=== PATIENT | male | born 1940 | race Caucasian/White ===

== ENCOUNTER 2017-05-03 11:45 | Emergency (ER) | payer MEDICARE | END 2017-05-03 12:21 | disposition home or self-care (01) | LOC: SCSER 11:45 | DX: K59.00 Constipation, unspecified (principal); Z79.899 Other long term (current) drug therapy | CPT/HCPCS: 99283 ==

== ENCOUNTER 2018-09-13 12:49 | Outpatient (CLI) | payer MEDICARE ==
[2018-09-13 14:44] LABS: Hemoglobin 13.4 g/dL (14.0-18.0)
[2018-09-13 15:23] LABS: Anion Gap 12 mmol/L (10-20); BUN (Urea Nitrogen) 13 mg/dL (8.4-25.7); Calc. Creatinine Clearance 0 mL/min (70-130); Calcium 9.6 mg/dL (7.8-10.44); Carbon Dioxide 27 mmol/L (23-31); Chloride 104 mmol/L (98-107); Estimated GFR-MDRD Greater than 90; Glucose 77 mg/dL (83-110); Potassium 4.9 mmol/L (3.5-5.1); Sodium 138 mmol/L (136-145)
== END 2018-09-13 12:50 | disposition home or self-care (01) ==
LOC: LABBT 12:49
PROVIDERS: ATTEND Internal Medicine Cardiovascular Disease
DX: Z01.812 Encounter for preprocedural laboratory examination (principal); R06.09 Other forms of dyspnea
CPT/HCPCS: 80048; 85014; 85018

== ENCOUNTER 2018-10-13 19:28 | Emergency (ER) | payer MEDICARE ==
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
[2018-10-13] MEDS ORDERED: Acetaminophen 325 MG TAB ONE ×2 (21:15→21:18)
== END 2018-10-13 22:46 | disposition home or self-care (01) ==
LOC: SCSER 19:28
DX: S22.31XA Fracture of one rib, right side, initial encounter for closed fracture (principal); E78.5 Hyperlipidemia, unspecified; Z86.73 Personal history of transient ischemic attack (TIA), and cerebral infarction without residual deficits; Z79.899 Other long term (current) drug therapy; V89.2XXA Person injured in unspecified motor-vehicle accident, traffic, initial encounter

== ENCOUNTER 2019-10-10 12:38 | Outpatient (CLI) | payer MEDICARE ==
[2019-10-10] MEDS ORDERED: Magnevist 469MG/ML 20 ML VIAL ONE (14:23)
[2019-10-10 15:15] LABS: Estimated GFR-MDRD - POC Greater than 90
--- NOTE | 2019-10-10 16:08 | MRI ---
MRI OF THE BRAIN WITH AND WITHOUT CONTRAST: 10/10/19 INDICATIONS: Syncope and collapse. CORRELATION: Correlation made to CT of 10/07/13. That exam described an evolving infarct in the right cerebrum. FINDINGS: There is encephalomalacia in the right frontal and temporal lobes with surrounding gliosis consistent with old infarcts. 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 Ex vacuo dilata tion of the right lateral ventricle due to these infarcts. Moderately severe chronic ischemic white m atter changes in the periventricular white matter and centrum semiovale as well as scattered hyperint ensities in the subcortical white matter of both cerebral hemispheres. There is no evidence of restricted diffusion. There is no evidence of acute mass, hemorrhage, or infa rct. No abnormal enhancement identified. The intracranial internal carotid arteries show flow voids. Proximal anterior cerebral arteries show flow void. Middle cerebral artery flow voids are not well demonstrated. The basilar artery shows flow voids. The dural venous sinuses appear patent. Mucosal thickening in the left maxillary antrum produces diffuse signal throughout this left maxillar y sinus. Mucosal thickening in the ethmoid air cells, sphenoid air cells and frontal air cells also n oted. IMPRESSION: 1. Encephalomalacia in the right cerebral hemisphere consistent with old infarct. There is surro unding gliosis and ex vacuo dilatation of the right lateral ventricle due to the volume loss. 2. Moderately severe chronic ischemic white matter change. 3. No acute infarct or other acute intraparenchymal process 4. Mucosal disease involving the paranasal sinuses with diffuse signal throughout the left maxil benjamin antrum. POS: NEENA
--- NOTE | 2019-10-11 11:23 | EEG ---
DATE OF SERVICE: 10/11/2019 DESCRIPTION THE RECORD: Waking background is well modulated 9 hertz alpha frequency. The patient remained awake throughout the study. Photic stimulation was unremarkable. No epileptiform features were seen. IMPRESSION: This is a normal awake EEG. Job ID: [id number]
== END 2019-10-10 12:39 | disposition home or self-care (01) ==
LOC: EEG 12:38 → BICMRI 12:39
PROVIDERS: ATTEND Psychiatry & Neurology Neurology
DX: R55 Syncope and collapse (principal); G93.89 Other specified disorders of brain; J34.89 Other specified disorders of nose and nasal sinuses
CPT/HCPCS: 70553; 82565; 95816; A9579